=== PATIENT | male | born 1985 | race African-American/Black ===

== ENCOUNTER 2021-06-21 18:39 | Emergency (ER) | payer SELFPAY ==
[2021-06-22 11:10] LABS: SARS-CoV-2 PCR by NAA Not Detected (NotDetected)
== END 2021-06-21 19:04 | disposition home or self-care (01) ==
LOC: ERS 18:39
DX: B34.9 Viral infection, unspecified (principal); Z20.822 Contact with and (suspected) exposure to COVID-19
CPT/HCPCS: 99283; U0003; U0005